=== PATIENT | male | born 1985 | race Hispanic/Latino ===

== ENCOUNTER 2019-07-16 11:58 | Emergency (ER) | payer SELFPAY ==
[2019-07-16 12:16] VITALS: BP 137/83; PULSE 85; RESP 16; TEMP 36.8; O2SAT 100
--- NOTE | 2019-07-16 12:38 | ED.GENADULT ---
HPI - General Adult General Chief complaint: Wound/Laceration Stated complaint: Cut on Thumb Time Seen by Provider: 07/16/19 12:38 Source: patient, RN notes reviewed and conciliation court judge (Y[place]i) Mode of arrival: ambulatory Limitations: language barrier (movie actor used) History of Present Illness HPI narrative: 34-year-old male present with complaints of laceration to right hand below 1st finger (thumb), caused by a broken glass when he was washing dishes approximately (at 11:30) 30 minutes ago. Scant bleeding. Denies numbness or tingling. Denies immobility. RIGHT HAND is dominant hand. Denies focal weakness, altered sensation, rash, fever or chills, or nausea or vomiting and abdominal pain. Denies pain, numbness or tingling, or loss of mobility. No foreign body sensation. Tetanus NOT up-to-date. Some parts of this dictation were generated by voice recognition software and may contain typographical and/or grammatical inaccuracies. Related Data Home Medications Medication Instructions Recorded Confirmed No Home Medications 07/16/19 07/16/19 Allergies Allergy/AdvReac Type Severity Reaction Status Date / Time No Known Allergies Allergy Verified 07/16/19 12:56 Review of Systems Review of Systems: Narrative: CONSTITUTIONAL: Denies fever, chills, sweats. EYES: Denies visual changes, redness, discharge. ENT: Denies rhinorrhea, congestion, sore throat, otalgia. CARDIOVASCULAR: Denies chest pain, palpitations, edema. RESPIRATORY: Denies dyspnea, wheezing, cough. GASTROINTESTINAL: Denies abdominal pain, nausea, vomiting, or diarrhea. GENITOURINARY: Denies dysuria, hematuria, abnormal discharge. SKIN: Denies rash or itching. Complains of laceration to right hand below 1st finger (thumb). Scant bleeding. MUSCULOSKELETAL: Denies acute back pain, joint pain, or myalgia. NEUROLOGIC: Denies numbness or focal weakness. PSYCHIATRIC: Denies anxiety or depression. [facility] Past Medical History Medical History (Updated 07/17/19 @ 00:00 by Giuliano Black) No significant past medical history Surgical History Surgical History (Updated 07/16/19 @ 19:43 by GAIL Pinedo) History of hand surgery Right hand: Family History Family History (Updated 07/16/19 @ 19:44 by GAIL Pinedo) Grandparent Hypertension Diabetes mellitus Social History Social History (Updated 07/16/19 @ 19:44 by GAIL Pinedo) Smoking status: Never smoker Second hand tobacco smoke exposure: No Alcohol intake: current Substance use: never Living arrangements: with family Occupation/Education: occupation Gender identity (if verbalized by the patient): Male Comments At time of signature, agree with nurse past medical, surgical, social, and family history. There is no relevant family history pertinent to the presenting complaint. Exam Narrative: Exam Narrative: GENERAL: This is a well-nourished, well-developed patient, in no apparent distress. HEAD: normocephalic, atraumatic. CARDIOVASCULAR: Regular rate and rhythm without murmurs, gallops, or rubs. RESPIRATORY: Clear to auscultation. Breath sounds equal bilaterally. No wheezes, rales, or rhonchi. GASTROINTESTINAL: Abdomen soft, non-tender, nondistended. Bowel sounds are active. No hepato-splenomegaly, or palpable masses. No guarding. SKIN: warm, RT hand palm with a 4cm laceration below (metacarpal area) 1st finger (thumb) with an avulsion small laceration area and (majority) liner laceration, no evidence of foreign body, tendon injury or neurovascular injury, small amount of bloody drainage noted after manipulation. No swelling, no erythema, or ecchymosis. No suspicious lesions or rash, good texture and turgor. NEURO: awake, alert, and oriented to person, place and time. There were no obvious focal neurologic abnormalities. Steady gait. EXTREMITIES: No clubbing, cyanosis, or edema. No joint tenderness, effusion, or edema noted. Normal digit c
[2019-07-16] MEDS: TETANUS,DIPHTHERIA,AC PERTUSSIS ADULT 0.5 ML (ADACEL) IM (13:31)
== END 2019-07-16 13:54 | disposition home or self-care (01) ==
PROVIDERS: Emergency Provider Nurse Practitioner Family
DX: S61.411A Laceration without foreign body of right hand, initial encounter (principal); X58.XXXA Exposure to other specified factors, initial encounter
CPT/HCPCS: 12002; 90471; 90715; 99202; G0463

== ENCOUNTER 2019-07-27 16:14 | Emergency (ER) | payer SELFPAY ==
[2019-07-27 16:25] VITALS: BP 117/71; PULSE 80; RESP 16; TEMP 36.7; O2SAT 100
--- NOTE | 2019-07-27 16:25 | ED.GENADULT ---
HPI - General Adult General Chief complaint: Skin/Abscess/Foreign Body Stated complaint: Stitches removed from finger Time Seen by Provider: 07/27/19 16:28 Source: patient, RN notes reviewed and old records reviewed Mode of arrival: ambulatory Limitations: no limitations History of Present Illness HPI narrative: This is a 34 years old male presents to the office for suture removal. He had six stitches on his right thumb placed on 07/16/2019 here. Reports slight itchiness on affected area. Denies any concerns such as fever, severe pain, red or warmth. I reviewed patient's previous visit. HPI - General Adult General Chief complaint: Wound/Laceration Stated complaint: Cut on Thumb Time Seen by Provider: 07/16/19 12:38 Source: patient, RN notes reviewed and spanish interpreter/translator (Mohawk) Mode of arrival: ambulatory Limitations: language barrier (spanish interpreter used) History of Present Illness HPI narrative: 34-year-old male present with complaints of laceration to right hand below 1st finger (thumb), caused by a broken glass when he was washing dishes approximately (at 11:30) 30 minutes ago. Scant bleeding. Denies numbness or tingling. Denies immobility. RIGHT HAND is dominant hand. Denies focal weakness, altered sensation, rash, fever or chills, or nausea or vomiting and abdominal pain. Denies pain, numbness or tingling, or loss of mobility. No foreign body sensation. Tetanus NOT up-to-date. Related Data Home Medications Medication Instructions Recorded Confirmed No Home Medications 07/16/19 07/16/19 Allergies Allergy/AdvReac Type Severity Reaction Status Date / Time No Known Allergies Allergy Verified 07/27/19 16:29 Review of Systems Review of Systems: Narrative: CONSTITUTIONAL: Denies fever or feeling ill SKIN: Reports slight itchiness around the stitches MUSCULOSKELETAL: He able to moves his right thumb. PMFSH Past Medical History Medical History No significant past medical history Surgical History Surgical History History of hand surgery Right hand: Family History Family History Grandparent Hypertension Diabetes mellitus Social History Social History Smoking status: Never smoker Second hand tobacco smoke exposure: No Alcohol intake: current Substance use: never Gender identity (if verbalized by the patient): Male Comments At time of signature, I agree with nursing past medical, surgical, social and family history. There is no relevant family history pertinent to the presenting complaint. Exam Narrative: Exam Narrative: GENERAL: This is a well-nourished, well-developed patient, in no apparent distress. SKIN:right dorsal aspect of first PIP noted pink, glandular tissue without pustular drainage, warmth, erythema. Wound appears healing well. I cleaned the wound with alcohol swap and then removed 6stitches without any complication or bleed at site. NEURO: awake, alert, and oriented to person, place and time. There were no obvious focal neurologic abnormalities. Steady gait Medical Decision Making Differential Diagnosis Differential Diagnosis: wound care instruction Medical Records Medical records reviewed: Yes I reviewed the patient's medical records. Critical Care Time Critical Care Time Critical Care Time: No Discharge Plan Discharge Clinical Impression: Encounter for removal of sutures Patient Disposition: Home, Self-Care Condition: Stable Prescriptions: No Action No Home Medications RF: 0 Follow-up/Referrals: UNKNOWN,DOCTOR [Primary Care Provider] - Time of Disposition: 16:33
== END 2019-07-27 16:35 | disposition home or self-care (01) ==
PROVIDERS: Emergency Provider Nurse Practitioner
DX: S61.011D Laceration without foreign body of right thumb without damage to nail, subsequent encounter (principal); W25.XXXD Contact with sharp glass, subsequent encounter
CPT/HCPCS: 99211; G0463